=== PATIENT | male | born 1960 | race Caucasian/White ===

== ENCOUNTER 2018-04-15 09:04 | Day surgery (SDC) | payer BC, OTHER ==
[2018-04-14 14:44] VITALS: BMI 29.5
[2018-04-15 10:26] VITALS: TEMP 97.5
[2018-04-15 11:08] VITALS: BP 110/64; PULSE 64
--- NOTE | 2018-04-17 15:07 | PATH ---
Surgical Pathology Report Patient Name: DEIRDRE REICH [facility]. Rec. #: [id number] /Age/Gender: 1960 (Age: 57) / M Account: [id number] Location: U-ENDOSCOPY Taken: 04/15/2018 Received: 04/15/2018 Reported: 04/17/2018 Physicians: Yimi Paiz D.O. Specimen(s) Received A: BX ILEOCECAL VALVE POLYP B: BX TERMINAL ILEUM C: BX TRANSVERSE COLON POLYP Clinical History Screening, family history of colon cancer Postoperative diagnosis: Colon polyps, diverticulosis, hemorrhoids Final Diagnosis A. ILEOCECAL VALVE, POLYPS, POLYPECTOMY: ILEOCECAL MUCOSA SHOWING PROMINENT BENIGN/REACTIVE LYMPHOID AGGREGATES. B. TERMINAL ILEUM, BIOPSY: ILEAL MUCOSA SHOWING BENIGN/REACTIVE LYMPHOID AGGREGATES. C. TRANSVERSE COLON, POLYP, POLYPECTOMY: HYPERPLASTIC POLYP. Electronically Signed Rosalba Lopez M.D. Gross Description A. Received in formalin, labeled "polyps ileocecal valve" are 5 herring, irregular portions of soft tissue ranging from 0.1-0.2 cm. in greatest dimension. The specimens are submitted in toto in one cassette. B. Received in formalin, labeled "biopsy terminal ileum" is a herring, irregular portion of soft tissue measuring 0.5 cm. in greatest dimension. The specimen is submitted in toto in one cassette. C. Received in formalin, labeled "polyp transverse colon" is a herring, irregular portion of soft tissue measuring 0.3 cm. in greatest dimension. The specimen is submitted in toto in one cassette. DL/04/15/2018 saudi04/15/2018
== END 2018-04-15 11:10 | disposition home or self-care (01) ==
LOC: JASU-ENDO 09:04
PROVIDERS: ATTEND Internal Medicine Gastroenterology
PROC: 0DBL8ZX Excision of Transverse Colon, Via Natural or Artificial Opening Endoscopic, Diagnostic (ICD-10-PCS; 2018-04-15)
PROC: 0DBC8ZX Excision of Ileocecal Valve, Via Natural or Artificial Opening Endoscopic, Diagnostic (ICD-10-PCS; principal; 2018-04-15 09:00)
DX: Z12.11 Encounter for screening for malignant neoplasm of colon (principal); K57.30 Diverticulosis of large intestine without perforation or abscess without bleeding; D12.3 Benign neoplasm of transverse colon; K64.8 Other hemorrhoids; Z80.0 Family history of malignant neoplasm of digestive organs
CPT/HCPCS: 88305-TC

== ENCOUNTER 2021-04-18 05:00 | Day surgery (SDC) | payer BC ==
[2021-04-12 16:33] VITALS: BMI 29.5
[2021-04-18 09:43] VITALS: TEMP 97.2
[2021-04-18 10:25] VITALS: BP 100/67; PULSE 58
== END 2021-04-18 10:25 | disposition home or self-care (01) ==
LOC: JASU-ENDO 05:00
PROVIDERS: ATTEND Internal Medicine Gastroenterology
PROC: 0DB78ZX Excision of Stomach, Pylorus, Via Natural or Artificial Opening Endoscopic, Diagnostic (ICD-10-PCS; 2021-04-18)
PROC: 0DB68ZX Excision of Stomach, Via Natural or Artificial Opening Endoscopic, Diagnostic (ICD-10-PCS; 2021-04-18)
PROC: 0DB38ZX Excision of Lower Esophagus, Via Natural or Artificial Opening Endoscopic, Diagnostic (ICD-10-PCS; 2021-04-18)
PROC: 0DB98ZX Excision of Duodenum, Via Natural or Artificial Opening Endoscopic, Diagnostic (ICD-10-PCS; principal; 2021-04-18 09:00)
DX: K22.81 Esophageal polyp (principal); K29.50 Unspecified chronic gastritis without bleeding
CPT/HCPCS: 88305-TC; 88342-TC

== ENCOUNTER 2021-06-13 13:01 | Emergency (ER) | payer BC ==
[2021-06-13 13:06] VITALS: BP 167/82; PULSE 68; TEMP 98.7; BMI 29.4
[2021-06-13] MEDS ORDERED: ACETAMINOPHEN 325 MG TABLET (FP) PO ONE (13:32)
[2021-06-13] MEDS ORDERED: ACETAMINOPHEN 325 MG TABLET (FP) ONE (13:45)
== END 2021-06-13 14:35 | disposition home or self-care (01) ==
LOC: FER 13:01
DX: J11.1 Influenza due to unidentified influenza virus with other respiratory manifestations (principal)
CPT/HCPCS: 71045-TC-FY; 87804; 87807; 99284-25; C9803; U0003; U0005